=== PATIENT | female | born 1960 ===

== ENCOUNTER 2016-09-12 09:17 | Emergency (ER) | payer BC | END 2016-09-12 09:23 | disposition home or self-care (01) | LOC: ER 09:17 | DX: M25.572 Pain in left ankle and joints of left foot (principal); E11.9 Type 2 diabetes mellitus without complications; Z87.891 Personal history of nicotine dependence; Z88.1 Allergy status to other antibiotic agents; Z88.8 Allergy status to other drugs, medicaments and biological substances | CPT/HCPCS: 73610-LT; 99283 ==